=== PATIENT | male | born 1950 | race Caucasian/White ===

== ENCOUNTER 2018-02-24 11:21 | Emergency (ER) | payer MEDICARE ==
[2018-02-24] MEDS ORDERED: Sulfameth/Trimethoprim DS 800-160mg TAB ONE (11:35)
[2018-02-24] MEDS ORDERED: Dexamethasone 4 mg/ml Vial ONE (11:35)
== END 2018-02-24 11:45 | disposition home or self-care (01) ==
LOC: BURERS 11:21
DX: J01.90 Acute sinusitis, unspecified (principal); F17.210 Nicotine dependence, cigarettes, uncomplicated
CPT/HCPCS: 99283; J1100